=== PATIENT | male | born 1975 | race Caucasian/White ===

== ENCOUNTER 2020-10-21 15:49 | Emergency (ER) | payer OTHER ==
[~2020-10-21 15:49] MED LIST: NAPROXEN500 MG PO
[2020-10-21] MEDS ORDERED: CILOXAN5 ML OD (18:19)
== END 2020-10-21 18:23 | disposition home or self-care (01) ==
LOC: FER 15:49
DX: H10.31 Unspecified acute conjunctivitis, right eye (principal); F17.200 Nicotine dependence, unspecified, uncomplicated
CPT/HCPCS: 90471; 90715; 99283

== ENCOUNTER 2021-09-17 07:41 | Emergency (ER) | payer OTHER ==
[~2021-09-17 07:41] MED LIST changes: +CILOXAN5 ML OD
== END 2021-09-17 08:45 | disposition home or self-care (01) ==
LOC: FER 07:41
DX: S62.201A Unspecified fracture of first metacarpal bone, right hand, initial encounter for closed fracture (principal); F17.200 Nicotine dependence, unspecified, uncomplicated; W31.89XA Contact with other specified machinery, initial encounter; Y92.89 Other specified places as the place of occurrence of the external cause; Z28.310 Unvaccinated for COVID-19
CPT/HCPCS: 73130